=== PATIENT | male | born 1980 | race Caucasian/White ===

== ENCOUNTER → 2019-06-08 | Outpatient (REF) | payer OTHER | LOC: M LAB LCGH 18:30 | PROVIDERS: ATTEND Physician Assistant | DX: L82.1 Other seborrheic keratosis (principal); R23.8 Other skin changes ==

== ENCOUNTER → 2019-12-07 | Outpatient (REF) | payer OTHER, MEDICARE | LOC: M LAB REF 15:30 | PROVIDERS: ATTEND Physician Assistant | DX: L82.1 Other seborrheic keratosis (principal) ==

== ENCOUNTER → 2023-04-23 | Outpatient (REF) | LOC: M PLAIMG 13:59 | PROVIDERS: ATTEND Internal Medicine | DX: R06.02 Shortness of breath (principal) ==